=== PATIENT | male | born 1990 | race Caucasian/White ===

== ENCOUNTER 2023-09-13 18:31 | Emergency (ER) | payer BC, SELFPAY ==
[2023-09-13 18:35] VITALS: BP 171/94
[2023-09-13 18:52] VITALS: BP 127/73
--- NOTE | 2023-09-13 18:59 | ED.GENMED ---
History of Present Illness
<Timothy Graf PA-C - Last Filed: 09/13/23 20:24>
General
Chief Complaint: Heart Rate Problem
Source: patient
Exam Limitations: none
Time Seen by Provider: 09/13/23 18:43
Travel History
Have you had any contact with someone who has COVID-19?: No
Do you have any symptoms of coronavirus? Fever > 100 degrees, chills, cough, shortness of breath, sore throat, loss of taste or smell, muscle aches, or headache?: No
History of Present Illness
History of Present Illness:
32-year-old male with history of anxiety presents complaining of elevated heart rate ongoing over the past several days but peaked today while driving. He felt his heart racing. He felt short breath. He was lightheaded at times. He has a history
of hypothyroidism. He is on clonidine for his anxiety. Is also prescribed benzodiazepines. He took half of a 0.1 mg clonidine prior to arrival. No chest pain. No other complaints at this time
Phy Exam
<Timothy Graf PA-C - Last Filed: 09/13/23 20:24>
Physical Exam
Physical Exam:
General: Slightly anxious appearing male no acute respiratory distress
Heart: Tachycardic but regular
Lungs: To auscultation bilaterally no wheezing
Extremities: No cyanosis or edema
Skin: Warm no rash or lesions
Course
<Timothy Graf PA-C - Last Filed: 09/13/23 20:24>
Orders/Labs/Results
Orders:
Orders
09/13/23 18:40
Electrocardiogram (*1) Urgent
Reason for Study: Tachycardia
EKG- Treatment ONCE
09/13/23 18:51
0.9% Sodium Chloride 1000 ml [Nss] 1,000 ml IV BOLUS
09/13/23 18:54
Cardiac Monitoring- Treatment ONCE
09/13/23 19:19
Complete Blood Count/With Diff Urgent
Comprehensive Metabolic Panel Urgent
TSH Reflex To Free T4 Urgent
Abnormal Lab Results
09/13/23
19:19
MPV 10.8 H fL
(7.4-10.4)
Carbon Dioxide 32 H mmol/L
(22-30)
09/13/23 19:19
09/13/23 19:19
Vital Signs
Initial and Last Documented VS:
Initial Vital Signs
Temp Pulse Resp BP Pulse Ox
97.9 F 142 20 171/94 98
09/13/23 18:35 09/13/23 18:35 09/13/23 18:35 09/13/23 18:35 09/13/23 18:35
Last Documented Vital Signs
Temp Pulse Resp BP Pulse Ox
97.9 F 73 15 107/70 99
09/13/23 18:35 09/13/23 19:20 09/13/23 19:20 09/13/23 19:00 09/13/23 19:00
Annalt;Charbel Corona, - Last Filed: 09/13/23 19:50>
Orders/Labs/Results
Orders:
Orders
09/13/23 18:40
Electrocardiogram (*1) Urgent
Reason for Study: Tachycardia
EKG- Treatment ONCE
09/13/23 18:51
0.9% Sodium Chloride 1000 ml [Nss] 1,000 ml IV BOLUS
09/13/23 18:54
Cardiac Monitoring- Treatment ONCE
09/13/23 19:19
Complete Blood Count/With Diff Urgent
Comprehensive Metabolic Panel Urgent
TSH Reflex To Free T4 Urgent
Abnormal Lab Results
09/13/23
19:19
MPV 10.8 H fL
(7.4-10.4)
Carbon Dioxide 32 H mmol/L
(22-30)
09/13/23 19:19
09/13/23 19:19
Vital Signs
Initial and Last Documented VS:
Initial Vital Signs
Temp Pulse Resp BP Pulse Ox
97.9 F 142 20 171/94 98
09/13/23 18:35 09/13/23 18:35 09/13/23 18:35 09/13/23 18:35 09/13/23 18:35
Last Documented Vital Signs
Temp Pulse Resp BP Pulse Ox
97.9 F 73 15 107/70 99
09/13/23 18:35 09/13/23 19:20 09/13/23 19:20 09/13/23 19:00 09/13/23 19:00
<Timothy Graf PA-C - Last Filed: 09/13/23 20:24>
MDM/Problems Addressed
Differential Diagnosis Includes:
Palpitations rapid heart rate. Differential could include arrhythmia versus electrolyte abnormality versus anxiety
Will check labs. Patient feels dry looks dry on exam slightly. Will hydrate.
<Timothy Graf PA-C - Last Filed: 09/13/23 20:24>
*Critical Care Note
Total Time (30-74mins, 75-104mins- exclusive of procedures): Not Applicable
<Timothy Graf PA-C - Last Filed: 09/13/23 20:24>
Update Note
Update Note:
Patient reevaluated heart rate has normalized feeling a little better. Labs reviewed without significant finding. Patient does have an appointment with market analyst in 6 days from now. I advise he keep this appointment. No indication for any
further intervention at this point. Stable for discharge
ED Attending Note
<Timothy Graf PA-C - Last Filed: 09/13/23 20:24>
-
Portions of this chart may have been created with voice recognition software.� Occasional wrong word or��sound alike� substitutions may have occurred due to the inherent limitations of voice recognition software.
<Charbel Corona DO - Last Filed: 09/13/23 19:50>
ED Attending Note
Patient seen and examined by attending physician: Yes
I performed the substantive portion of visit, reviewed & personally made and approve the management plan that is documented in note by myself or JOAO.: Yes
ED Attending Note:
Patient is a 32-year-old male with a history of hypothyroidism And mood disorder for which she takes lithium who presents to the emergency department after becoming anxious and panicky and felt his heart racing. Patient had this happen couple times
in the past couple of weeks and has had periodically but seems to be getting more frequent. Patient denies any hair or skin changes. Patient denies any weight loss. Patient denies any nausea, vomiting or diarrhea. Patient denies shortness of
breath. Patient does take nicotine gum concentrate. Patient at this point is feeling much improved. Heart is regular without murmur or gallop. Lungs are clear. Neck is supple with no thyromegaly. Abdomen soft nontender. Extremities without
edema or cyanosis. Initial EKG showed a sinus tachycardia but the patient's heart rate at this time is 90. Blood pressure is 107/70. Pulse ox is 100%. Patient does not smoke. Anticipate that the patient will be discharged. Believe the patient
is having episodes of tachycardia that are associated with anxiety however we will check the TSH as the patient is on thyroid supplements. Also will refer patient to cardiology for possible Holter and echocardiogram. Will consider placing the
patient on Toprol on a as needed basis.
Discharge Plan
Departure
Patient Disposition: Home (Routine Discharge)
Date of Disposition: 09/13/23
Time of Disposition: 20:23
Patient with high blood pressure during this ER visit?: No
Discharge Problem:
Heart palpitations
Instructions: Palpitations (DC)
Referrals:
UNKNOWN - PT DOES,NOT KNOW [Family Provider] -
Activity Restrictions/Additional Instructions:
Stay hydrated. Continue current medicines. Please follow-up with cardiology as planned. Return if worse otherwise
Interventions
Interventions:
*Risk Screen - Suicide Last Done: 09/13/23 18:39
*General Assessment Last Done: 09/13/23 18:39
*Neglect/Abuse Screening Last Done: 09/13/23 18:39
ED- Fall Risk Assessment Last Done: 09/13/23 19:26
*ED COVID-19 Vaccine History Last Done: 09/13/23 19:26
ED- Cardiac Assessment Last Done: 09/13/23 19:26
ED- Pulmonary Assessment Last Done: 09/13/23 19:26
[2023-09-13 19:00] VITALS: BP 107/70
[2023-09-13 19:19] VITALS: BMI 23.5
[2023-09-13 19:37] LABS: % Basophils 0.3 % (0-2); % Eosinophils 1.2 % (0-6); % Immature Granulocytes 0.2 % (0-0.5); % Lymphocytes 27.6 % (20.5-51.1); % Monocytes 5.9 % (1.7-9.3); % Neutrophils 64.8 % (42.2-75.2); Absolute Eosinophils 0.1 10^3/uL (0-0.7); Absolute Lymphocytes 1.6 10^3/uL (1.2-3.4); Absolute Monocytes 0.4 10^3/uL (0.1-0.6); Absolute Neutrophils 3.9 10^3/uL (1.4-6.5); Hemoglobin 15.5 g/dL (13.0-18.0); Mean Corpuscular Hgb 30.6 pg (27.0-31.0); Mean Corpuscular Volume 84.8 fL (80.0-94.0); Mean Platelet Volume 10.8 fL (7.4-10.4); Nucleated Red Blood Cells % 0 % (-); Platelet Count 203 10^3/uL (130-400); Red Blood Cell Count 5.07 10^6/uL (4.70-6.10); Red Cell Dist. Width 12.7 % (11.5-14.5); White Blood Cell Count 5.9 10^3/uL (4.8-10.8)
[2023-09-13] MEDS: NSS 1000 IV (19:42)
[2023-09-13 19:52] LABS: ALT (SGPT) 17 U/L (0-50); AST (SGOT) 26 U/L (17-59); Albumin 4.6 g/dl (3.5-5.0); Alkaline Phosphatase 60 U/L (38-126); Blood Urea Nitrogen 10 mg/dl (9-20); Calcium 9.3 mg/dl (8.4-10.2); Carbon Dioxide 32 mmol/L (22-30); Chloride 102 mmol/L (98-107); Estimated Creatinine Clearance 116 ml/min; Glucose 92 mg/dl (70-99); Potassium 3.9 mmol/L (3.5-5.1); Sodium 138 mmol/L (135-145); Total Bilirubin 0.6 mg/dl (0.2-1.3); Total Protein 7.2 g/dl (6.3-8.2); eGFR > 60.00
[2023-09-13 20:00] VITALS: BP 119/74
== END 2023-09-13 20:36 | disposition home or self-care (01) ==
LOC: EMR 18:31
PROVIDERS: Physician Assistant; EMERGENCY PHYSICIAN Emergency Medicine
DX: R00.2 Palpitations (principal); R42 Dizziness and giddiness; F41.9 Anxiety disorder, unspecified; E03.9 Hypothyroidism, unspecified; F39 Unspecified mood [affective] disorder; Z79.899 Other long term (current) drug therapy; Z88.1 Allergy status to other antibiotic agents
CPT/HCPCS: 99284; 96360; 80053; 84443; 85025; 93005

== ENCOUNTER → 2023-10-08 16:11 | Outpatient (REF) | payer BC, SELFPAY | LOC: RCS 16:11 | PROVIDERS: ATTENDING PHYSICIAN Internal Medicine Cardiovascular Disease | DX: Z86.79 Personal history of other diseases of the circulatory system (principal); I34.1 Nonrheumatic mitral (valve) prolapse | CPT/HCPCS: 93306 ==